=== PATIENT | female | born 1985 | race Caucasian/White ===

== ENCOUNTER 2024-12-27 11:39 | Emergency (ER) | payer OTHER ==
[~2024-12-27] VITALS: Ht 165.1 cm; Wt 108.9 kg
[2024-12-27 15:55] VITALS: BP 122/73; O2SAT 97
== END 2024-12-27 16:17 ==
LOC: ER 11:40
DX: Z46.89 Encounter for fitting and adjustment of other specified devices (principal); G40.909 Epilepsy, unspecified, not intractable, without status epilepticus
CPT/HCPCS: 73140; A4606; A4663

== ENCOUNTER 2025-02-24 14:55 | Emergency (ER) | payer OTHER, MEDICAID ==
[~2025-02-24] VITALS: Ht 162.6 cm; Wt 108.9 kg
[2025-02-24] MEDS: IV NORMAL SALINE 1000 ML BAG IV ONE (15:14)
[2025-02-24] MEDS ORDERED: BUSP15TA3 PO (15:16)
[2025-02-24] MEDS ORDERED: IBUP-1953 PO (15:16)
[2025-02-24] MEDS ORDERED: CLON2TAB11 PO ×3 (15:16)
[2025-02-24] MEDS ORDERED: TOPI100T38 PO (15:16)
[2025-02-24] MEDS ORDERED: PRIM50TA27 PO (15:16)
[2025-02-24] MEDS ORDERED: CLOB10TA3 PO (15:16)
[2025-02-24] MEDS ORDERED: HYDROCORTISONE TOP (15:16)
[2025-02-24] MEDS ORDERED: DICL100G31 TP (15:16)
[2025-02-24] MEDS ORDERED: ARIP15TA18 PO (15:16)
[2025-02-24] MEDS ORDERED: LORA-259 PO (15:16)
[2025-02-24] MEDS ORDERED: DOXE50CA4 PO (15:16)
[2025-02-24 15:28] LABS: PLATELET COUNT (AUTO) 240 K/uL (179-408); RED BLOOD CELL COUNT(AUTO) 4.35 MIL/uL (3.63-4.92); RED CELL DISTRIBUTION WIDTH 14.2 % (12.3-17.7); WHITE BLOOD COUNT (AUTO) 7.9 K/uL (3.8-11.8)
[2025-02-24] MEDS ORDERED: LEVE500T20 PO (15:30)
[2025-02-24 15:42] LABS: ETHANOL < 3 MG/DL (0-10)
[2025-02-24 15:43] LABS: CREATININE 1.0 mg/dL (0.6-1.3); SODIUM SERUM 144.0 mmol/L (136-145); UREA NITROGEN, BLOOD 15.0 mg/dL (7-18)
[2025-02-24 15:55] LABS: *BILIRUBIN,URIN NEGATIVE (NEGATIVE); *BLOOD, URINE NEGATIVE (NEGATIVE); *CLARITY,URINE CLEAR (CLEAR); *COLOR,URINE YELLOW (YELLOW); *KETONES,URINE NEGATIVE (NEGATIVE); *PROTEIN,URINE NEGATIVE (NEGATIVE); *URINE HCG, QUAL NEGATIVE (NEGATIVE); *UROBILINOGEN,URINE 0.2 E.U./dl (NORMAL); LEUKOCYTE ESTERASE ,URINE NEGATIVE (NEGATIVE); NITRITE, URINE NEGATIVE (NEGATIVE); UGLUCOSE NEGATIVE (NEGATIVE)
[2025-02-24 16:07] LABS: *AMPHETAMINE, URINE NEGATIVE (NEGATIVE); *BARBITURATE, URINE NEGATIVE (NEGATIVE); *BENZODIAZEPINE, URINE POSITIVE (NEGATIVE); *CANNABINOID, URINE NEGATIVE (NEGATIVE); *COCCAINE, URINE NEGATIVE (NEGATIVE); *OPIATE, URINE NEGATIVE (NEGATIVE); *PHENCYCLIDINE SCREEN,URINE NEGATIVE (NEGATIVE); FENTANYL, URINE NEGATIVE (NEGATIVE)
[2025-02-24] MEDS ORDERED: LORAZEPAM 2 MG/1 ML VIAL ONE (16:38)
[2025-02-24] MEDS: LORAZEPAM 2 MG/1 ML VIAL IV ONE (16:39)
[2025-02-24 17:25] VITALS: BP 139/88; O2SAT 99
== END 2025-02-24 17:40 | disposition home or self-care (01) ==
LOC: ER 14:55
DX: G40.909 Epilepsy, unspecified, not intractable, without status epilepticus (principal); Z79.899 Other long term (current) drug therapy
CPT/HCPCS: 80048; 81003; 80185; 82962; 84703; 85025; 36415; 93005; 99284; 96365; 96375; 80320; 80307; J2060; J7040; A4606; A4663; C1758; G0480; J1953